=== PATIENT | male | born 1960 | race Hispanic/Latino ===

== ENCOUNTER 2018-05-26 11:26 | Emergency (ER) | payer SELFPAY ==
[~2018-05-26] VITALS: Ht 175.3 cm; Wt 91.0 kg
[2018-05-26 11:33] VITALS: BP 100/67
== END 2018-05-26 12:57 | disposition home or self-care (01) | DRG 605 ==
LOC: ED 11:26
PROC: 0HQEXZZ Repair Left Lower Arm Skin, External Approach (ICD-10-PCS; principal; 2018-05-26)
DX: S61.512A Laceration without foreign body of left wrist, initial encounter (principal); I10 Essential (primary) hypertension; W01.118A Fall on same level from slipping, tripping and stumbling with subsequent striking against other sharp object, initial encounter; Y92.009 Unspecified place in unspecified non-institutional (private) residence as the place of occurrence of the external cause; Z86.73 Personal history of transient ischemic attack (TIA), and cerebral infarction without residual deficits